=== PATIENT | female | born 2000 | race Caucasian/White ===

== ENCOUNTER 2024-02-12 13:31 | Emergency (ER) | payer OTHER, SELFPAY ==
[2024-02-12 13:32] VITALS: BP 129/93; PULSE 79; RESP 20; TEMP 37.2; O2SAT 99; BMI 32.7
--- NOTE | 2024-02-12 15:22 | EKG12_ITS ---
Test Reason : SOB Blood Pressure : */* mmHG Vent. Rate : 86 BPM Atrial Rate : 86 BPM P-R Int : 142 ms QRS Dur : 74 ms QT Int : 360 ms P-R-T Axes : 64 43 46 degrees QTcB Int : 430 ms Normal sinus rhythm with sinus arrhythmia Normal ECG Confirmed by Jose Angel Roper ([id number]), editor magazine REGINE CHAVEZ ([id number]) on 02/14/2024 5:55:40 AM Referred By: RONNY/CHARITY Confirmed By: Jose Angel Roper
--- NOTE | 2024-02-12 15:23 | EDS_ITS ---
HPI History of Present Illness Chief Complaint: Shortness of Breath Informant: patient and spouse/S.O. Narrative Narrative: 23-year-old female with a history of asthma has felt like she has had a flareup with chest tightness and wheezing for about a week. She thinks may be related to the fact that she and her 's roommate recently brought to [facility], that was about 2 weeks prior to the onset of this, and is not living with the cats. She states she had some mild cat allergic symptoms in the past but they have a cat but it is a different type of them the ones that were recently brought into the home. She denies any cough, fevers, chills, sputum production, sore throat, or other symptoms of an illness. She has been using Primatene Mist that has been helping temporarily and partially, she does not have a PCP or any other asthma medications and states she has not really had frequent flareups in the past decade. [facility] Medical History (Updated 02/12/24 @ 15:48 by David Johnson) Hypoglycemia Hypothyroidism David thyroiditis Endometriosis Asthma Home Medications ?Medication ?Instructions ?Recorded ?Last Taken ?Type albuterol sulfate 90 mcg/actuation 1 - 2 puff inhalation Q4H PRN PRN 02/12/24 Unknown Rx aerosol inhaler (Ventolin HFA) Wheezing ##1 ergocalciferol (vitamin D2) 1,250 1,250 mcg PO QWEEK 02/12/24 Unknown History mcg (50,000 unit) capsule fluticasone propionate 110 1 puff inhalation Q12H #12 grams 02/12/24 Unknown Rx mcg/actuation HFA aerosol inhaler levothyroxine 112 mcg tablet 112 mcg PO DAILY 02/12/24 Unknown History prednisone 10 mg tablet 10 mg PO UD #30 tabs 02/12/24 Unknown Rx Allergy/AdvReac Type Severity Reaction Status Date / Time red dye Allergy Rash Verified 02/12/24 13:33 Social History (Updated 02/12/24 @ 15:[address] Rafal Phillips MD) household members: spouse and other details: roommate Smoking Status: Never smoker ROS ROS ED Constitutional Constitutional ED: Denies chills or fever(s) Eyes Eyes: Denies change in vision or diplopia ENT ENT ED: Denies rhinorrhea or sore throat Cardiovascular Cardiovascular: Denies chest pain or palpitations Respiratory/Chest Respiratory/Chest: Denies cough or dyspnea Gastrointestinal Gastrointestinal: Denies abdominal pain, diarrhea, nausea or vomiting Genitourinary Genitourinary ED: Denies dysuria or hematuria Musculoskeletal Musculoskeletal: Denies back pain or neck pain Integumentary Denies abscess or rash Neurologic Neurologic: Denies headache(s), paresthesias or weakness Psychiatric Psychiatric: Denies anxiety or suicidal thoughts EXAM Physical Exam Const Vital Signs: 02/12/24 13:32 02/12/24 15:31 02/12/24 15:31 Temperature 99 F Temperature Source Temporal Pulse Rate 79 101 H Respiratory Rate 20 H 15 Respiratory Effort Respiratory Depth Respiratory Pattern Blood Pressure 129/93 H Blood Pressure Mean 105 Pulse Ox 99 100 Oxygen Delivery Method Room Air Room Air 02/12/24 15:32 02/12/24 15:32 Temperature Temperature Source Pulse Rate 98 Respiratory Rate 16 Respiratory Effort Short of Breath Respiratory Depth Normal Respiratory Pattern Normal Blood Pressure 96/63 Blood Pressure Mean 74 Pulse Ox 98 Oxygen Delivery Method Room Air Room Air Positive well nourished and well developed General Appearance ED: well developed and NAD HEENT Reports moist mucous membranes HEENT Narrative: Normal tongue no stridor normal voice normocephalic and atraumatic Eyes PERRL and EOMs intact bilaterally Neck full ROM and supple Resp normal respiratory effort Resp Narrative: Slight bilateral inspiratory wheezes otherwise clear Cardio regular rate, regular rhythm and no murmurs Rate: Negative for tachycardic Back/Spine General Back: other FROM Extremity normal to inspection General Extremety ED: Negative for edema, pulses abnormal or tenderness General Extremity: Negative for edema or pulses abnormal Neuro oriented x3, CN's II-XII intact bilaterally and no sensory deficits noted Sensorium / Orientation: awake and alert Motor Exam: strength 5/5 throughout Psych mental status grossly normal Skin no rashes or lesions noted and no wounds MDM MDM MDM Narrative Medical decision making narrative: Patient given a couple nebulizer treatments which helped her chest tightness, consistent with asthma. She is oxygenating well and her vital signs are normal. EKG was obtained by triage it is normal. I do not think this is a cardiac etiology. She is given a taper of prednisone, and albuterol inhaler prescription, as well as inhaled maintenance fluticasone. She was advised that this may not be enough to combat the allergens which are likely the new cats, she may need to follow-up with a primary care physician which she does not have that she is referred to the [facility]. Rhythm Strip Rhythm Strip: Sinus Rhythm Rate: 85 Ectopy: None EKG Initial EKG: Attestation: I personally reviewed and interpreted this EKG as follows: Interpretation: Sinus Rhythm and No Acute Injury Pattern Comments: Nml axis & intervals; nml EKG Discharge Plan Triage Chief Complaint: Shortness of Breath ED Provider: Rafal Phillips Dx/Rx/DC Orders Clinical Impression: Acute asthma exacerbation Instructions: ED Asthma, Acute (Adult) Prescriptions: New prednisone 10 mg tablet 10 mg PO UD Qty: 30 0RF Rx Instructions: Take 4 tablets daily for 3 days, then 3 daily for 3 days, then 2 daily for 3 days, then 1 a day for 3 days albuterol sulfate [Ventolin HFA] 90 mcg/actuation HFA aerosol inhaler 1 - 2 puff inhalation Q4H PRN PRN (Reason: Wheezing) Qty: 1 0RF fluticasone propionate 110 mcg/actuation HFA aerosol inhaler 1 puff inhalation Q12H Qty: 12 0RF No Action levothyroxine 112 mcg tablet 112 mcg PO DAILY Patient Comments: takes 1/2 a pill on Monday ergocalciferol (vitamin D2) 1,250 mcg (50,000 unit) capsule 1,250 mcg PO QWEEK Primary Care Provider: Care Physician,No Primary Referrals: Zina Gramajo, ACCOUNT DEVELOPMENT EXECUTIVE-C [[facility]] - Print Language: Marshallese Disposition Disposition: Home, Self Care
[2024-02-12] MEDS: Ipratropium/Albuterol Sulfate 3 ML AMPUL.NEB INHALATION (15:30)
[2024-02-12 15:31] VITALS: PULSE 101; RESP 15; O2SAT 100
[2024-02-12 15:32] VITALS: BP 96/63; PULSE 98; RESP 16; O2SAT 98
[2024-02-12] MEDS: predniSONE 20 MG Tablet 40 MG PO (15:43)
[2024-02-12 16:50] VITALS: PULSE 107; RESP 16
[2024-02-12] MEDS: Albuterol 2.5 MG/3 ML VIAL.NEB. INHALATION (16:50)
[2024-02-12 17:00] VITALS: BP 115/68; PULSE 60; RESP 16; O2SAT 99
== END 2024-02-12 17:06 | disposition home or self-care (01) ==
PROVIDERS: Emergency Provider Emergency Medicine; Visit Provider Emergency Medicine
DX: J45.901 Unspecified asthma with (acute) exacerbation (principal); E03.9 Hypothyroidism, unspecified; Z79.890 Hormone replacement therapy; Z79.899 Other long term (current) drug therapy
CPT/HCPCS: 93005; 94640; 99282

== ENCOUNTER → 2024-04-03 | Outpatient (CLI) | payer BC, SELFPAY ==
[2024-04-03 09:21] LABS: Basophil# 0.04 X10^3/uL; Basophil% 0.3 % (0-1); Eosinophils% 0.9 % (0-5); Hematocrit 38.1 % (37-47); Hemoglobin 12.8 g/dL (12.0-15.0); Lymphocyte % 23.5 % (19-41); Mean Corp Hgb Conc 33.6 g/dL (32-36); Mean Corpuscular Hgb 29.4 pg (27.0-32.0); Mean Corpuscular Volume 87.4 fL (81-99); Mean Platelet Vol. 11.1 fl (6.2-12.0); Monocyte# 0.59 X10^3/uL; Monocyte% 5.1 % (0-10); NRBC Flagged by Analyzer 0 % (0-5); Neutrophil # 8.02 X10^3/uL (2.7-7.7); Neutrophil % 69.7 % (47-70); Platelet Count 287 K/mm3 (150-450); RBC Distribution Width CV 13.4 % (11.6-14.6); RBC Distribution Width SD 42.9 fl (35.1-43.9); Red Blood Count 4.36 M/mm3 (4.2-5.4); White Blood Count 11.5 K/mm3 (4.4-11.0)
[2024-04-03 09:53] LABS: AST(SGOT) 7 U/L (15-37); Alanine Aminotransfer ALT/SGPT 17 U/L (13-56); Albumin, Serum 3.7 g/dL (3.2-5.0); Alkaline Phosphatase 89 U/L (45-117); Anion Gap 10 (5-15); BUN 12 mg/dL (7-18); BUN/Creat Ratio 16.5 RATIO (10-20); Calcium,Total 9.3 mg/dL (8.5-10.1); Chloride 105 mmol/L (98-107); Cholesterol 163 mg/dL (200); Creatinine, Serum 0.73 mg/dL (0.55-1.02); EST Glomerular Filtration Rate 105 mL/min (>60); Est Glom Filt Rate - Afr Amer 128 mL/min (>60); Globulin 3.7 g/dL (2.2-4.2); Glucose 86 mg/dL (74-106); High Density Lipoprotein 72 mg/dL; Potassium 3.6 mmol/L (3.5-5.1); Protein, Total 7.4 g/dL (6.4-8.2); Sodium Level 139 mmol/L (136-145); T4 Total, Thyroxin 6.9 ug/dL (4.8-13.9); Triglycerides 100 mg/dL; Very Low Density Lipoprotein 20 mg/dL (5-40); hCG Titer Quant., Serum < 1 mIU/mL (1-3)
== END | disposition home or self-care (01) ==
DX: Z32.01 Encounter for pregnancy test, result positive (principal); O99.280 Endocrine, nutritional and metabolic diseases complicating pregnancy, unspecified trimester; E03.9 Hypothyroidism, unspecified; Z3A.00 Weeks of gestation of pregnancy not specified
CPT/HCPCS: 36415; 80053; 80061; 83036; 84436; 84443; 84702; 85025; 94060; 94726; 94729

== ENCOUNTER 2024-04-12 15:39 | Emergency (ER) | payer BC, SELFPAY ==
[2024-04-12 15:40] VITALS: BP 123/79; PULSE 84; RESP 16; TEMP 36.6; O2SAT 100; BMI 32.8
[2024-04-12 17:19] LABS: Mucous, Urine 0 SEEN /hpf (<or=2+)
[2024-04-12 17:33] LABS: Color, Urine Yellow (Yellow); Glucose, Dipstick Normal (Normal); Ketone-Dipstick Negative (Negative); Leukocyte Esterase-Dipstick 100 /ul (Negative); Nitrite-Dipstick Negative (Negative); Occult Blood-Urine 250 /ul (Negative); Protein-Dipstick Negative (Negative); Specific Gravity, Urine 1.025 (1.002-1.030); Urine Bilirubin Dipstick Negative (Negative); Urine Clarity Clear (Clear); Urine Urobilinogen Normal (Normal)
--- NOTE | 2024-04-12 17:37 | ED.VIS.FEGU ---
HPI HPI - Female History of Present Illness Chief Complaint: Vag Bleeding Informant: patient Pain Pain: Positive for Pelvic Pain Onset: Yesterday Context: Gradual Onset Timing: Intermittent Quality: Positive for Cramping Location: RLQ, LLQ and Suprapubic Worsened by: - (Nothing) Relieved by: - (Nothing) Bleeding Issue: Positive for Vaginal bleeding Onset: Yesterday Context: Gradual Onset Timing: Intermittent Current Severity: Mild Maximum Severity: Mild Associated Symptoms Associated Symptoms: Positive for Frequency; Negative for Dysuria or Hematuria Last known menstrual period: 02/25/2024 Test: Positive P: 0 Ab: 1 Narrative Narrative: Patient presents with vaginal bleeding that began yesterday. Patient states she is approximately 7 weeks . Patient also admits to some lower abdominal cramping. Patient states it is mild bleeding. Patient states it is intermittent. Patient states she has had 4 episodes since yesterday. Patient states nothing makes her pain better nothing makes it worse. Patient states her pain is mainly over the lower abdomen and pelvic area. Patient denies any nausea or vomiting. Patient admits to some urinary frequency but denies any dysuria or hematuria. Patient states her last menstrual period was 02/25/2024. Patient is 2 para 0 with 1 prior spontaneous . [facility] Medical History (Updated 04/12/24 @ 19:[address] Delano Garcia, ) Hypoglycemia Hypothyroidism David thyroiditis Endometriosis Asthma Home Medications ?Medication ?Instructions ?Recorded ?Last Taken ?Type albuterol sulfate 90 mcg/actuation 1 - 2 puff inhalation Q4H PRN PRN 02/12/24 Unknown Rx aerosol inhaler (Ventolin HFA) Wheezing ##1 ergocalciferol (vitamin D2) 1,250 1,250 mcg PO QWEEK 02/12/24 Unknown History mcg (50,000 unit) capsule fluticasone propionate 110 1 puff inhalation Q12H #12 grams 02/12/24 Unknown Rx mcg/actuation HFA aerosol inhaler levothyroxine 112 mcg tablet 112 mcg PO DAILY 02/12/24 Unknown History prednisone 10 mg tablet 10 mg PO UD #30 tabs 02/12/24 Unknown Rx Allergy/AdvReac Type Severity Reaction Status Date / Time red dye Allergy Rash Verified 04/12/24 15:39 Surgical History Hx of laparoscopy Social History household members: spouse and other details: roommate Smoking Status: Never smoker ROS ROS ED Constitutional Constitutional ED: Denies chills or fever(s) Eyes Eyes: Denies blurry vision or change in vision ENT ENT ED: Denies rhinorrhea or sore throat Cardiovascular Cardiovascular: Denies chest pain or palpitations Respiratory/Chest Respiratory/Chest: Denies cough or dyspnea Gastrointestinal Gastrointestinal: Reports abdominal pain; Denies nausea or vomiting Genitourinary Genitourinary ED: Denies dysuria or hematuria Musculoskeletal Musculoskeletal: Denies back pain or neck pain Integumentary Denies abscess or rash Neurologic Neurologic: Denies headache(s) or weakness Allergic/Immunologic Allergic/Immunologic ED: Denies mouth swelling or urticaria EXAM Physical Exam Const Vital Signs: 04/12/24 15:40 04/12/24 17:39 Temperature 97.9 F Temperature Source Temporal Pulse Rate 84 80 Respiratory Rate 16 16 Blood Pressure 123/79 H 118/84 H Blood Pressure Mean 93 95 Pulse Ox 100 99 Oxygen Delivery Method Room Air MDM MDM MDM Narrative Medical decision making narrative: Differential diagnosis includes ectopic , threatened miscarriage, spontaneous miscarriage, and urinary tract infection. CBC will be obtained to assess for leukocytosis and anemia. Basic metabolic profile will be obtained to assess for electrolyte abnormality and renal function. Urinalysis will be obtained to assess for urinary tract infection and hematuria. Pelvic ultrasound will be obtained to assess for spontaneous miscarriage and ectopic . Type and Rh will be obtained to assess for Rh status. Lab Data Attestation: I reviewed the patient's lab results. Lab results narrative: CBC was reviewed and was within normal limits. Basic metabolic profile was reviewed and showed a mild hypokalemia 3.3. The remainder is within normal limits. Quantitative hCG was reviewed and was less than 1. Urinalysis was reviewed. There is no evidence of urinary tract infection or hematuria. Blood type is B+. Labs: Laboratory Results - last 24 hr 04/12/24 04/12/24 17:10 17:55 WBC 10.5 RBC 4.27 Hgb 12.5 Hct 37.8 MCV 88.5 MCH 29.3 MCHC 33.1 RDW Std Deviation 45.0 H RDW Coeff of Kaur 14.0 Plt Count 359 MPV 11.6 Immature Gran % (Auto) 0.300 Neut % (Auto) 60.2 Lymph % (Auto) 32.6 [place] % (Auto) 5.4 Eos % (Auto) 1.1 Baso % (Auto) 0.4 Absolute Neuts (auto) 6.3 Absolute Lymphs (auto) 3.42 Nucleated RBC % 0 Sodium 139 Potassium 3.3 L Chloride 108 H Carbon Dioxide 24.0 Anion Gap 7 BUN 9 Creatinine 0.57 Estim Creat Clear Calc 135.36 Est GFR (MDRD) Af Amer 169 Est GFR (MDRD) Non-Af 139 BUN/Creatinine Ratio 15.8 Glucose 80 Calcium 9.1 HCG, Quant < 1 Urine Color Yellow Urine Clarity Clear Urine pH 6.0 Ur Specific [place] 1.025 Urine Protein Negative Urine Glucose (UA) Normal Urine Ketones Negative Urine Occult Blood 250 H Urine Nitrite Negative Urine Bilirubin Negative Urine Urobilinogen Normal Ur Leukocyte Esterase 100 H Urine RBC 0-5 SEEN Urine WBC 0-5 SEEN Ur Squamous Epith Cells 0-5 SEEN Urine Bacteria 1+ Urine Mucus 0 SEEN Urine Test Negative Blood Type B POSITIVE Treatment and Re-Evaluation Narrative: Since the patient's quantitative hCG is less than 1, I do not feel that pelvic ultrasound is necessary at this time. Patient was instructed to follow-up with her FILING CLERK in 3 to 5 days. Patient was instructed to return if worse in any way. Patient understood and was agreeable with the plan. All questions were answered. Discharge Plan Triage Chief Complaint: Vag Bleeding ED Provider: Delano Garcia Dx/Rx/DC Orders Clinical Impression: Abnormal vaginal bleeding, Pelvic pain Instructions: ED Pelvic Pain, Unknown Cause Prescriptions: No Action prednisone 10 mg tablet 10 mg PO UD Qty: 30 0RF Rx Instructions: Take 4 tablets daily for 3 days, then 3 daily for 3 days, then 2 daily for 3 days, then 1 a day for 3 days albuterol sulfate [Ventolin HFA] 90 mcg/actuation HFA aerosol inhaler 1 - 2 puff inhalation Q4H PRN PRN (Reason: Wheezing) Qty: 1 0RF fluticasone propionate 110 mcg/actuation HFA aerosol inhaler 1 puff inhalation Q12H Qty: 12 0RF levothyroxine 112 mcg tablet 112 mcg PO DAILY Patient Comments: takes 1/2 a pill on Monday ergocalciferol (vitamin D2) 1,250 mcg (50,000 unit) capsule 1,250 mcg PO QWEEK Primary Care Provider: Silke De Jesus Referrals: Silke De Jesus, CORPORATE DEVELOPMENT MANAGER-C [Primary Care Provider] - 3-5 Days Print Language: Bahraini Disposition Disposition: Home, Self Care
[2024-04-12 17:39] VITALS: BP 118/84; PULSE 80; RESP 16; O2SAT 99
[2024-04-12 18:09] LABS: Bacteria 1+ /hpf (None Seen); Squamous Epithelial Cells - UA 0-5 SEEN /hpf (5-10); White Blood Cells 0-5 SEEN /hpf (0-5)
[2024-04-12 18:10] LABS: Internal QC Validated? YES +Cl - CLEAR BKGD; Pregnancy, Urine Negative Negative; Red Blood Cells-Urine 0-5 SEEN /hpf (0-5)
[2024-04-12 18:29] LABS: Anion Gap 7 (5-15); BUN 9 mg/dL (7-18); BUN/Creat Ratio 15.8 RATIO (10-20); Calcium,Total 9.1 mg/dL (8.5-10.1); Chloride 108 mmol/L (98-107); Creatinine, Serum 0.57 mg/dL (0.55-1.02); EST Glomerular Filtration Rate 139 mL/min (>60); Est Glom Filt Rate - Afr Amer 169 mL/min (>60); Estimated Creatinine Clearance 135.36 ml/min; Glucose 80 mg/dL (74-106); Potassium 3.3 mmol/L (3.5-5.1); Sodium Level 139 mmol/L (136-145)
[2024-04-12] MEDS: 0.9% Normal Saline (1000mL) 1,000 ML 999 ML IV (18:33)
[2024-04-12 18:34] LABS: hCG Titer Quant., Serum < 1 mIU/mL (1-3)
[2024-04-12 18:41] LABS: Absolute Lymphocyte Count 3.42 X10^3/uL (0.83-4.51); Absolute Neutrophil Count 6.3 X10^3/uL (2.0-7.7); Basophil# 0.04 X10^3/uL; Basophil% 0.4 % (0-1); Eosinophil# 0.12 X10^3/uL; Eosinophils% 1.1 % (0-5); Hematocrit 37.8 % (37-47); Hemoglobin 12.5 g/dL (12.0-15.0); Lymphocyte # 3.42 X10^3/ul (0.83-4.51); Lymphocyte % 32.6 % (19-41); Mean Corp Hgb Conc 33.1 g/dL (32-36); Mean Corpuscular Hgb 29.3 pg (27.0-32.0); Mean Corpuscular Volume 88.5 fL (81-99); Mean Platelet Vol. 11.6 fl (6.2-12.0); Monocyte# 0.57 X10^3/uL; Monocyte% 5.4 % (0-10); NRBC Flagged by Analyzer 0 % (0-5); Neutrophil # 6.31 X10^3/uL (2.7-7.7); Neutrophil % 60.2 % (47-70); Platelet Count 359 K/mm3 (150-450); Red Blood Count 4.27 M/mm3 (4.2-5.4); White Blood Count 10.5 K/mm3 (4.4-11.0)
[2024-04-12 19:00] VITALS: BP 132/86; PULSE 85; RESP 17; O2SAT 98
== END 2024-04-12 20:01 | disposition home or self-care (01) ==
PROVIDERS: Emergency Provider Emergency Medicine; Visit Provider Emergency Medicine
DX: N93.9 Abnormal uterine and vaginal bleeding, unspecified (principal); R10.2 Pelvic and perineal pain; E87.6 Hypokalemia; J45.909 Unspecified asthma, uncomplicated; E03.9 Hypothyroidism, unspecified; Z79.890 Hormone replacement therapy; Z79.899 Other long term (current) drug therapy
CPT/HCPCS: 80048; 81001; 81025; 84702; 85025; 86900; 86901; 96360; 99283; A4216

== ENCOUNTER 2024-04-27 11:42 | Emergency (ER) | payer BC, SELFPAY ==
[2024-04-27 11:42] VITALS: BP 119/87; PULSE 78; RESP 16; TEMP 36.6; O2SAT 98; BMI 32.8
--- NOTE | 2024-04-27 11:51 | EX.ED.DYSGE1 ---
HPI History of Present Illness Chief Complaint: Nausea/Vomiting Detail of Chief Complaint: Vomiting Informant: patient Narrative Narrative: Patient presents to the emergency department complaint of vomiting that started 2 days ago. Patient states that she started vomiting yesterday morning a couple of times and then symptoms resolved. She did had some mild nausea yesterday afternoon but that then resolved as well. This morning she woke up and has vomited about 5 times. She denies any diarrhea. She denies abdominal pain. She denies urinary symptoms. No significant upper respiratory symptoms. She denies sick contacts. Patient tells me she had a fever to 100.02 days ago but that had resolved. [facility] Medical History (Updated 04/27/24 @ 12:[address] Xavier Mason, ) Hypoglycemia Hypothyroidism David thyroiditis Endometriosis Asthma Home Medications ?Medication ?Instructions ?Recorded ?Last Taken ?Type albuterol sulfate 90 mcg/actuation 1 - 2 puff inhalation Q4H PRN PRN 02/12/24 Unknown Rx aerosol inhaler (Ventolin HFA) Wheezing ##1 ergocalciferol (vitamin D2) 1,250 1,250 mcg PO QWEEK 02/12/24 Unknown History mcg (50,000 unit) capsule fluticasone propionate 110 1 puff inhalation Q12H #12 grams 02/12/24 Unknown Rx mcg/actuation HFA aerosol inhaler levothyroxine 112 mcg tablet 112 mcg PO DAILY 02/12/24 Unknown History prednisone 10 mg tablet 10 mg PO UD #30 tabs 02/12/24 Unknown Rx ondansetron 4 mg disintegrating 4 mg PO Q8H PRN PRN Nausea #10 tabs 04/27/24 Unknown Rx tablet Allergy/AdvReac Type Severity Reaction Status Date / Time red dye Allergy Rash Verified 04/27/24 11:43 Surgical History Hx of laparoscopy Social History household members: spouse and other details: roommate Smoking Status: Never smoker ROS ROS ED Review of Systems ROS Unobtainable: other Constitutional Constitutional ED: Reports fever(s) and lethargy; Denies chills, sweats or weight loss Eyes Eyes: Denies blurry vision, change in vision or diplopia ENT ENT ED: Denies rhinorrhea or sore throat Cardiovascular Cardiovascular: Denies chest pain, orthopnea or racing heartbeat Respiratory/Chest Respiratory/Chest: Denies cough, dyspnea, dyspnea on exertion, orthopnea or sputum Gastrointestinal Gastrointestinal: Reports nausea and vomiting; Denies abdominal pain or diarrhea Genitourinary Genitourinary ED: Denies dysuria, hematuria or urinary frequency Musculoskeletal Musculoskeletal: Denies arthralgias, back pain, myalgias or neck pain Integumentary Denies abscess, Abrasions or rash Neurologic Neurologic: Denies headache(s) or weakness Psychiatric Psychiatric: Denies anxiety, depression or suicidal thoughts Endocrine Endocrinology: Denies polydipsia, polyphagia or polyuria Hematologic/Lymphatic Hematologic/Lymphatic: Denies easy bleeding, easy bruising or lymphadenopathy Allergic/Immunologic Allergic/Immunologic ED: Denies mouth swelling, tongue swelling or urticaria EXAM Physical Exam Const Vital Signs: 04/27/24 11:42 Temperature 97.8 F Temperature Source Oral Pulse Rate 78 Respiratory Rate 16 Blood Pressure 119/87 H Blood Pressure Mean 97 Pulse Ox 98 Oxygen Delivery Method Room Air Positive well nourished and well developed General Appearance ED: well developed and NAD HEENT Reports TM's clear and moist mucous membranes normocephalic and atraumatic; Negative for trauma or tenderness Tympanic Membrane ED: Yes TM's clear Eyes PERRL and EOMs intact bilaterally General Eye ED: Negative for pale conjunctiva or scleral icterus Neck no lymphadenopathy, supple and no JVD General: Negative for tenderness Chest Wall inspection of chest normal and palpation of chest normal Chest: Negative for tenderness Resp normal respiratory effort and clear to auscultation bilaterally Effort and Inspection: Negative for respiratory distress or pain with movement Auscultation: Negative for rhonchi, wheezes or diminished lung sounds Cardio regular rate, regular rhythm, S1 normal heart sound, S2 normal heart sound and no murmurs Peripheral Pulses: pulses 2+ throughout GI normal to inspection, nondistended, normoactive bowel sounds, soft to palpation, non-tender, non-distended and no masses Back/Spine no CVA tenderness and no thoracic nor lumbar tenderness Extremity normal to inspection General Extremety ED: Negative for edema General Extremity: Negative for edema Neuro oriented x3, CN's II-XII intact bilaterally, no sensory deficits noted and gait normal Sensorium / Orientation: awake, alert, oriented to person, oriented to place and oriented to time Motor Exam: strength 5/5 throughout and strength abnormal Psych mental status grossly normal Skin no rashes or lesions noted and no wounds MDM MDM MDM Narrative Medical decision making narrative: Patient presents to the emergency department with complaint of nausea and vomiting. She describes history of low-grade fever 2 days ago. Rare cough. No diarrhea. Clinically looks well. She has not missed a menstrual period and does not think she is . IV line established. She was given a liter [place] fluid bolus and given Zofran 4 mg IV. CBC with differential obtained showed white count 7.9 with hemoglobin 13.3 and platelet count of 367. Chemistries unremarkable. hCG serum was negative. Urinalysis was normal. Patient felt markedly improved after treatment. She will be discharged to home with diagnosis of vomiting. Suspect possibly a viral syndrome. Abdominal exam is benign and do not feel she needs any imaging. Advised to return if persistent vomiting, dehydration, worsening abdominal pain, or condition worsen anyway Lab Data Attestation: I reviewed the patient's lab results. Labs: Laboratory Results - last 24 hr 04/27/24 04/27/24 12:04 12:10 WBC 7.9 RBC 4.59 Hgb 13.3 Hct 40.8 MCV 88.9 MCH 29.0 MCHC 32.6 RDW Std Deviation 43.9 RDW Coeff of Kaur 13.5 Plt Count 367 MPV 10.8 Immature Gran % (Auto) 0.500 Neut % (Auto) 60.0 Lymph % (Auto) 32.4 [place] % (Auto) 5.9 Eos % (Auto) 0.8 Baso % (Auto) 0.4 Absolute Neuts (auto) 4.7 Absolute Lymphs (auto) 2.56 Nucleated RBC % 0 Sodium 140 Potassium 3.7 Chloride 107 Carbon Dioxide 26.0 Anion Gap 6 BUN 9 Creatinine 0.72 Estim Creat Clear Calc 107.06 Est GFR (MDRD) Af Amer 130 Est GFR (MDRD) Non-Af 107 BUN/Creatinine Ratio 12.6 Glucose 86 Calcium 9.2 Serum , Qual NEGATIVE Urine Color Yellow Urine Clarity Clear Urine pH 7.0 Ur Specific [place] 1.010 Urine Protein 15 H Urine Glucose (UA) Normal Urine Ketones Negative Urine Occult Blood Negative Urine Nitrite Negative Urine Bilirubin Negative Urine Urobilinogen Normal Ur Leukocyte Esterase 100 H Urine RBC 0 SEEN Urine WBC 0-5 SEEN Ur Squamous Epith Cells 5-10 SEEN Urine Bacteria 1+ Urine Mucus 0 SEEN Discharge Plan Triage Chief Complaint: Nausea/Vomiting ED Provider: Xavier Mason Dx/Rx/DC Orders Clinical Impression: Vomiting, Acute viral syndrome Instructions: ED Viral Syndrome (Adult), ED Vomiting (Adult) Prescriptions: New ondansetron 4 mg tablet,disintegrating 4 mg PO Q8H PRN PRN (Reason: Nausea) Qty: 10 0RF No Action prednisone 10 mg tablet 10 mg PO UD Qty: 30 0RF Rx Instructions: Take 4 tablets daily for 3 days, then 3 daily for 3 days, then 2 daily for 3 days, then 1 a day for 3 days albuterol sulfate [Ventolin HFA] 90 mcg/actuation HFA aerosol inhaler 1 - 2 puff inhalation Q4H PRN PRN (Reason: Wheezing) Qty: 1 0RF fluticasone propionate 110 mcg/actuation HFA aerosol inhaler 1 puff inhalation Q12H Qty: 12 0RF levothyroxine 112 mcg tablet 112 mcg PO DAILY Patient Comments: takes 1/2 a pill on Monday ergocalciferol (vitamin D2) 1,250 mcg (50,000 unit) capsule 1,250 mcg PO QWEEK Primary Care Provider: Silke De Jesus Referrals: Silke De Jesus, PORTFOLIO ACCOUNTANT-C [Primary Care Provider] - 3-5 Days Print Language: Citizen Of [place] Disposition Disposition: Home, Self Care
[2024-04-27] MEDS: 0.9% Normal Saline (1000mL) 1,000 ML 999 ML IV (12:03)
[2024-04-27] MEDS: Ondansetron 4 MG/2 ML Vial IV (12:03)
[2024-04-27 12:14] LABS: Mucous, Urine 0 SEEN /hpf (<or=2+)
[2024-04-27 12:15] LABS: Color, Urine Yellow (Yellow); Glucose, Dipstick Normal (Normal); Ketone-Dipstick Negative (Negative); Leukocyte Esterase-Dipstick 100 /ul (Negative); Nitrite-Dipstick Negative (Negative); Occult Blood-Urine Negative /ul (Negative); Protein-Dipstick 15 mg/dl (Negative); Urine Bilirubin Dipstick Negative (Negative); Urine Clarity Clear (Clear); Urine Urobilinogen Normal (Normal)
[2024-04-27 12:16] LABS: Absolute Lymphocyte Count 2.56 X10^3/uL (0.83-4.51); Absolute Neutrophil Count 4.7 X10^3/uL (2.0-7.7); Basophil# 0.03 X10^3/uL; Basophil% 0.4 % (0-1); Eosinophil# 0.06 X10^3/uL; Eosinophils% 0.8 % (0-5); Hematocrit 40.8 % (37-47); Hemoglobin 13.3 g/dL (12.0-15.0); Lymphocyte # 2.56 X10^3/ul (0.83-4.51); Lymphocyte % 32.4 % (19-41); Mean Corp Hgb Conc 32.6 g/dL (32-36); Mean Corpuscular Volume 88.9 fL (81-99); Mean Platelet Vol. 10.8 fl (6.2-12.0); Monocyte# 0.47 X10^3/uL; Monocyte% 5.9 % (0-10); NRBC Flagged by Analyzer 0 % (0-5); Neutrophil # 4.74 X10^3/uL (2.7-7.7); Platelet Count 367 K/mm3 (150-450); RBC Distribution Width CV 13.5 % (11.6-14.6); RBC Distribution Width SD 43.9 fl (35.1-43.9); Red Blood Count 4.59 M/mm3 (4.2-5.4); White Blood Count 7.9 K/mm3 (4.4-11.0)
[2024-04-27 12:21] LABS: White Blood Cells 0-5 SEEN /hpf (0-5)
[2024-04-27 12:22] LABS: Bacteria 1+ /hpf (None Seen); Red Blood Cells-Urine 0 SEEN /hpf (0-5); Squamous Epithelial Cells - UA 5-10 SEEN /hpf (5-10)
[2024-04-27 12:23] LABS: Internal QC Validated? YES +Cl - CLEAR BKGD; Pregnancy, Serum, hCG Quali. NEGATIVE Negative
[2024-04-27 12:54] LABS: Anion Gap 6 (5-15); BUN 9 mg/dL (7-18); BUN/Creat Ratio 12.6 RATIO (10-20); Calcium,Total 9.2 mg/dL (8.5-10.1); Chloride 107 mmol/L (98-107); Creatinine, Serum 0.72 mg/dL (0.55-1.02); EST Glomerular Filtration Rate 107 mL/min (>60); Est Glom Filt Rate - Afr Amer 130 mL/min (>60); Estimated Creatinine Clearance 107.06 ml/min; Glucose 86 mg/dL (74-106); Potassium 3.7 mmol/L (3.5-5.1); Sodium Level 140 mmol/L (136-145)
[2024-04-27 13:00] VITALS: BP 119/87; PULSE 78; RESP 16; TEMP 36.6; O2SAT 98
== END 2024-04-27 13:06 | disposition home or self-care (01) ==
PROVIDERS: Emergency Provider Emergency Medicine; Visit Provider Emergency Medicine
DX: R11.2 Nausea with vomiting, unspecified (principal); B34.9 Viral infection, unspecified; E03.9 Hypothyroidism, unspecified; J45.909 Unspecified asthma, uncomplicated; Z79.890 Hormone replacement therapy; Z79.899 Other long term (current) drug therapy
CPT/HCPCS: 80048; 81001; 84703; 85025; 96361; 96374; 99283; J2405

== ENCOUNTER → 2024-06-25 | Outpatient (CLI) | payer BC, SELFPAY ==
[2024-06-25 17:35] LABS: Thyroid Stim Hormone (TSH) 0.191 uIU/mL (0.300-4.200)
== END | disposition home or self-care (01) ==
LOC: VSLAB 13:41
DX: E03.9 Hypothyroidism, unspecified (principal)
CPT/HCPCS: 36415; 84443

== ENCOUNTER → 2024-09-25 | Outpatient (CLI) | payer BC, SELFPAY ==
[2024-09-25 16:33] LABS: Hematocrit 40.9 % (37-47); Hemoglobin 13.3 g/dL (12.0-15.0); Mean Corp Hgb Conc 32.5 g/dL (32-36); Mean Corpuscular Volume 87.8 fL (81-99); Mean Platelet Vol. 10.9 fl (6.2-12.0); Platelet Count 322 K/mm3 (150-450); RBC Distribution Width CV 14.4 % (11.6-14.6); RBC Distribution Width SD 45.9 fl (35.1-43.9); Red Blood Count 4.66 M/mm3 (4.2-5.4); White Blood Count 7.4 K/mm3 (4.4-11.0)
[2024-09-25 17:20] LABS: Anion Gap 12 (5-15); BUN 10 mg/dL (4-19); BUN/Creat Ratio 15.7 RATIO (10-20); Calcium,Total 9.5 mg/dL (7.6-11.0); Carbon Dioxide 22.4 mmol/L (21.0-32.0); Chloride 102 mmol/L (98-108); Glucose 78 mg/dL (70-99); Potassium 3.8 mmol/L (3.3-5.1); Vitamin D,25 Hydroxy 33.2 ng/mL (30-100)
== END | disposition home or self-care (01) ==
LOC: VSLAB 11:48
PROVIDERS: Visit Provider Nurse Practitioner Family
DX: E03.9 Hypothyroidism, unspecified (principal)
CPT/HCPCS: 36415; 80048; 82306; 84439; 84443; 85027; 86376; 86800

== ENCOUNTER → 2024-10-02 | Outpatient (CLI) | payer BC, SELFPAY ==
--- NOTE | 2024-10-02 15:41 | US_ITS ---
PROCEDURE: THYROID 10/02/2024 REASON FOR EXAM: HYPOTHYROIDISM, THYROIDITIS, UNSPECIFIED TECHNIQUE: THYROID COMPARISON: None FINDINGS: Right thyroid lobe size: 4.4 x 1.4 x 1.5 cm Left thyroid lobe size: 4.5 x 1.6 x 1.5 cm Isthmus: 4 mm Background parenchymal echotexture is heterogeneous Nodules: 1. Lobe: Right, Location: Midpole posteriorly, Size: 1.1 cm, Stability: Baseline Composition: Solid or almost completely solid (+2) Echogenicity: Hyper to Isoechoic (+1) Margin: Smooth (+0) Shape: Wider than tall (+0) Echogenic Foci: None (+0) TI-RADS: 3 2. Lobe: Left, Location: Midpole, Size: 1.9 cm, Stability: Baseline Composition: Solid or almost completely solid (+2) Echogenicity: Hyper to Isoechoic (+1) Margin: Ill-defined (+0) Shape: Wider than tall (+0) Echogenic Foci: None (+0) TI-RADS: 3 3. Lobe: Left, Location: Upper pole, Size: 1.2 cm, Stability: Baseline Composition: Solid or almost completely solid (+2) Echogenicity: Hyper to Isoechoic (+1) Margin: Ill-defined (+0) Shape: Wider than tall (+0) Echogenic Foci: None (+0) TI-RADS: 3 US/Thyroid IMPRESSION: 1. Heterogeneous thyroid gland. Multiple thyroid nodules. Largest 1.9 cm. TI-RADS 3. Mildly Suspicious: FNA i f = 2.5 cm; Follow if = 1.5 cm at 1, 3, and 5 y Reading Location: [id number]
== END | disposition home or self-care (01) ==
PROVIDERS: Referring Provider Nurse Practitioner Family; Visit Provider Nurse Practitioner Family
DX: E03.9 Hypothyroidism, unspecified (principal); E06.9 Thyroiditis, unspecified
CPT/HCPCS: 76536